=== PATIENT | female | born 1995 | race Caucasian/White ===

== ENCOUNTER 2017-09-18 08:00 | Inpatient (IN) ==
[2017-09-18] MEDS ORDERED: Naloxone 0.4 MG/ML INJ IVP PRN (09:01)
[2017-09-18] MEDS ORDERED: *HR* Nalbuphine 10 MG/ML AMPUL IVP PRN (09:01)
[2017-09-18] MEDS ORDERED: Ondansetron 4 MG/2 ML VIAL IVP PRN (09:01)
[2017-09-18] MEDS ORDERED: Famotidine 20 MG/2 ML VIAL IVP PRN (09:01)
[2017-09-18] MEDS ORDERED: Metoclopramide 10 MG/2 ML VIAL IVP PRN (09:01)
[2017-09-18] MEDS ORDERED: Ringers Solution, Lactated 1,000 ML IVC SCH (09:15)
--- NOTE | 2017-09-18 09:23 | OB/GYN History & Physical ---
Date of Encounter: 09/18/17 Time of Encounter: 09:07 Assessment and Plan (1) Postmaturity , 40-42 weeks gestation Current visit: Yes Status: Acute For induction of labor with Cytotec. History of Present Illness Chief complaint: 40 wk IOL HPI: Ms. Sandoval is a 21 year old female with a history of twins and unknown LMP,? November?, had an ultrasound at 6 weeks 5 days establishing an EDC of 09/17/17. She is currently 40 weeks and 1 day. was complicated by subchorionic hematoma which resolved, and mild anemia. She reports no contractions, no vaginal bleeding or loss of fluid. Fetus has been active. Her previously was a 35 week twin gestation with a vaginal delivery, largest fetus 5 lbs. 14 oz. Her blood type is A+, she is rubella immune, varicella immune and GBS negative. She has had care with Dr. Lara, has gained 41 pounds, and is here for an induction of labor. Past Med Surg Social Fam HX - Past Medical History Source: patient, old records reviewed Medical history: no medical history Psychiatric history: no psych history - Past Surgical History Surgical History: no surgical history - Social History Smoking Status: Never smoker Smokeless Tobacco Status: No Alcohol use: none Drug use: none Current living situation: Home - Independent - Family History Mother Living Status: Still Living Hx Family Cardiac Disorders: (HTN) Obstetrical History - Pregnancies : 2 Term: 0 : 1 Ab's: 0 Livin - History/Complications History/Complications: Twins Medications and Allergies Docusate [Colace] 100 mg PO BID #60 capsule 10/23/15 [Rx] Ferrous Sulfate 325 mg PO DAILY #30 tablet 10/23/15 [Rx] Ibuprofen [Motrin] 600 mg PO TID PRN #60 tablet 10/23/15 [Rx] Vit/FA 1 each PO DAILY tablet 10/23/15 [Rx] 3 Allergy/AdvReac Type Severity Reaction Status Date / Time No Known Allergies Allergy Verified 09/17/15 12:39 Review of System OB All systems PM: reviewed and no additional remarkable complaints except as stated - Constitutional Constitutional ROS IM: fatigue, weight gain - Menstruation Menstruation: as per HPI, amenorrhea Exam - Vital Signs Vital signs: Afebrile, vital signs stable - Constitutional Constitutional: well developed, well nourished, no acute distress, average body habitus - HEENT HEENT: Normocephaly, Mucus Membranes Moist - Neck Neck exam: normal inspection, supple - Lungs Respiratory exam: CTAB - Cardiovascular Cardiovascular exam: RRR - Breasts Breast: bilateral: normal (Gravid) - Abdomen Abdomen: Present: bowel sounds normal, non tender - Extremities Extremities exam: normal inspection, pedal edema, warm Deep Tendon Reflex Grade: 2+ Normal - Vulva Vulva: bilateral: normal - Vagina Vagina: Present: normal moisture - Cervix Dilation: 1 (per Dr Lara, unable to reach) Effacement: 50 (posterior) Station: -1 - Anus/Rectum Anus/Rectum: Present: normal perianal skin Results All other labs normal. - VTE Reasons for not Prescribing Prophylaxis: Treatment not Indicated - Low risk for VTE
[2017-09-18 09:50] LABS: Basophils # 0.1 K/mcL (0.0-0.2); Basophils % 0.4 %; Eosinophils # 0.2 K/mcL (0.0-0.6); Eosinophils % 1.4 %; Hematocrit 34.8 % (35.3-44.9); Hemoglobin 11.1 g/dL (11.5-15.4); Immature Granulocytes % 0.9 % (0-4); Lymphocytes % 15.1 %; Mean Corpuscular HGB Conc 31.9 g/dL (31.6-35.5); Mean Corpuscular Hemoglobin 25.2 pg (28.0-33.3); Mean Corpuscular Volume 79.1 fL (83.0-100.0); Mean Platelet Volume 12.1 fL (9.4-12.4); Monocytes # 1.1 K/mcL (0.0-1.3); Monocytes % 7.9 %; Neutrophils # 9.9 K/mcL (1.6-8.9); Platelet Count 217 K/mcL (140-400); Red Cell Distribution Width 15.7 % (11.5-14.5); Segmented Neutrophils % 74.3 %
[2017-09-18] MEDS: miSOPROStol 25 MCG TABLET PO PRN ×2 (10:34→14:36)
--- NOTE | 2017-09-18 12:24 | OB Labor Progress Note ---
Date of Encounter: 09/18/17 Time of Encounter: 12:22 Labor Progress Note - Subjective Subjective: The patient reports being comfortable, mild cramping - Vital Signs Vital Signs: Afebrile, vital signs stable - Cervix Cervix: 3/70/-1, vertex - Heart Tones Heart Tones: 130s baseline, CAT 1 - [place]: irritability - Interventions Interventions: 40 week IUP for induction of labor - Plan Plan: Oral Cytotec, unable to place Blanca per CNM, cervical change as of last checked 2 hours ago
[2017-09-18 13:13] LABS: Amphetamine Screen,Urine Negative ng/mL (Cutoff=1000); Barbiturate Screen,Urine Negative ng/mL (Cutoff=200); Benzodiazepines Screen,Urine Negative ng/mL (Cutoff=200); Cannabinoid Screen,Urine Positive ng/mL (Cutoff = 50); Cocaine Screen,Urine Negative ng/mL (Cutoff= 300); Opiate Screen,Urine Negative ng/mL (Cutoff=300); Phencyclidine Screen,Urine Negative ng/mL (Cutoff=25)
--- NOTE | 2017-09-18 15:31 | OB Labor Progress Note ---
Date of Encounter: 09/18/17 Time of Encounter: 15:29 Labor Progress Note - Subjective Subjective: The patient reports no significant contractions. She received her second dose of 50 mcg of oral Cytotec 1 hour ago. - Cervix Cervix: 3/70/-1, vertex/posterior - Heart Tones Heart Tones: 120s baseline, CAT 1 - [place]: Irritability - Interventions Interventions: 40 week IUP for induction of labor - Plan Plan: 60 mL Blanca balloon inserted and the cervix per protocol. Continue induction. Anticipate vaginal delivery
--- NOTE | 2017-09-18 17:29 | OB Labor Progress Note ---
Date of Encounter: 09/18/17 Time of Encounter: 17:27 Labor Progress Note - Subjective Subjective: The patient reports feeling intense contractions after Blanca balloon placed in the cervix, for about 20 minutes and then gradually decreased. She is feeling some contractions but not consistent are strong. She has had some bloody show. - Cervix Cervix: I do /-1, posterior with bulgy bag, vertex - Heart Tones Heart Tones: 130s baseline, CAT 1 - [place]: Irregular and hard to monitor on external toco - Interventions Interventions: 40 week intrauterine for induction of labor - Plan Plan: 60 mL Blanca balloon out. Amniotomy with clear fluid seen. IUPC placed. If contraction pattern is not adequate, the patient will be augmented with Pitocin
[2017-09-18] MEDS ORDERED: Oxytocin 20 units/ LR 1000 mL 20 UNIT/1,000 ML BAG IVC ONE (18:07)
[2017-09-18] MEDS ORDERED: Oxytocin 20 units/ LR 1000 mL 20 UNIT/1,000 ML BAG IVC SCH (18:15)
[2017-09-18] MEDS ORDERED: Bupivacaine-MPF 0.25% 10 ML VIAL EP ONE (18:55)
[2017-09-18] MEDS ORDERED: *HR* FentaNYL (PF) 100 MCG/2 ML VIAL EP ONE (18:55)
[2017-09-18] MEDS ORDERED: Epidural Premix (fent/bupiv) 110 ML EP SCH (19:00)
[2017-09-18] MEDS ORDERED: Lidocaine -MPF 1% 5 ML AMPUL ONE (19:05)
--- NOTE | 2017-09-18 19:56 | Anesthesia Evaluation PreOp ---
Date of Encounter: 09/18/17 Time of Encounter: 18:56 - Past History Planned Operation: labor epidural Cardiac History: Denies any Significant Hx Pulmonary History: Denies Any Significant HX FOLLOW UP SPECIALIST History: Denies Any Significant HX Other Medical History: Denies Any Significant HX Anesthesia History: No Prior Anesthetic Complications, Past Anesthesia (wisdom teeth extracted. No FHAP.) : Yes Alcohol Use: none Drug use: none Medications and Allergies No Known Home Drugs 09/18/17 [History] 3 Allergy/AdvReac Type Severity Reaction Status Date / Time No Known Allergies Allergy Verified 09/17/15 12:39 - Meds/Allergy Pre-op Review Medications Reviewed: Yes Allergies Reviewed: Yes Beta Blockers on Current Med List: No Anesthesia Results - Labs 09/18/17 09:09 Anesthesia Exam 121/69, 87, 18, 99%. FHTs 130s Height: 5'3" Weight: 88kg NPO (# of Hours): >8 Pain Scale: 6 Pain Scale Used: Numeric (1 - 10) - HEENT Pupil (Motor): Pupils equal Mallampati: II Teeth: Normal Oral Opening: Greater than 3 - FOLLOW UP SPECIALIST LOC: Oriented FOLLOW UP SPECIALIST Motor: Normal RUE, Normal LUE, Normal RLE, Normal LLE, Normal Face FOLLOW UP SPECIALIST Sensory: Normal: RUE, LUE, RLE, LLE, Face - Cardiac Rhythm: Regular - Pulmonary Breath Sounds: bilateral Clear Respiratory Effort: Symmetrical Anesthesia Assess/Plan ASA Score: 2 Modified Nilesh Scale for Level of Consciousness: Cooperative, oriented, and tranquil Anesthetic Plan: Regional Monitoring Plan: Standard Monitors
--- NOTE | 2017-09-18 19:59 | Anesthesia Procedures ---
Date of Encounter: 09/18/17 Time of Encounter: 19:16 Procedures: Anesthesia - Epidural/Spinal Patient ID/Chart reviewed: Yes Patient examined: Yes OB Eval: Gestational age: 40 OB Eval: : 2 OB Eval: Hx Para: 2 OB Eval: Contractions: Non-stressed pattern Consent Obtained: Yes Supplemental Oxygen: None/Room Air Site Prep: Aseptic Technique, Sterile prep and drape, Povidone-Iodine 1% Patient position: upright Local Anesthetic: Lidocaine 1% Amount of Local Anesthetic used: 5 Touhy Needle Gauge: 18 Touhy Needle Depth (cm): 7 Catheter Depth at Skin (cm): 20 Test Dose (1.5% Lido + Epi): Volume given (mls): 3 Test Dose Result: Negative Loading Dose: 0.25% Marcaine (mls): 8 Loading Dose: Fentanyl (mcg): 100 Loading Dose Administered: Thru Catheter Infusion Med: 0.125% Bupivacaine w/ 2 mcg/ml Fentanyl Infusion Rate (mls/hr): [address]: Tegaderm, Tape Interspace Used: L3-L4 Loss of Resistance (JOSHUA): Yes Blood: No CSF: No Paresthesia: No Vitals + FHT's: 3 Vital Signs Time 1915 1935 1939 1944 1949 BP 140/88 138/64 136/66 135/64 126/63 Pulse 89 87 84 78 81 FHTs 130 130 130 130 130
[2017-09-18] MEDS ORDERED: Bupivacaine-MPF 0.25% 10 ML VIAL ONE (23:14)
[2017-09-18] MEDS ORDERED: *HR* FentaNYL (PF) 100 MCG/2 ML VIAL ONE (23:14)
--- NOTE | 2017-09-19 02:20 | OB/GYN Procedure Note ---
Delivery - Delivery Date: 09/19/17 Provider: Cori Peralta Intrapartum events: none Delivery induction: ocampo, misoprostol Delivery augmentation: rupture of membranes, pitocin Delivery monitor: external FHT, external uterine, internal uterine Anesthesia: epidural Quantitated Blood Loss: 800 - (s) Infant A Infant Delivery Date: 09/19/17 Infant Delivery Time: 01:03 Presentation: vertex Position: SARINA Route of delivery: Gender: Male Viability: Viable Pounds: 7 Ounces: 14 Weight Gram: 3.58 kg at 1 minute: 8 at 5 mins: 10 Shoulder Dystocia: not encountered Specimens collected: endometrial currettings Placenta: uterine exploration, other (Banjo curette), retained, complete extraction Cord: 3 umbilical vessels - Repair Episiotomy: none Laceration Description: Periurethral (Bilateral, repair on the right) - Complications Delivery complications: retained placenta Delivery comments: Patient complete and pushing with epidural anesthesia and with 2 contractions she had a spontaneous vaginal delivery of a vigorous male in the SARINA position, weighing 7 lbs. 14 oz. with Apgars of 8 at 1 minute and 10 at 5 minutes. Patient placed on maternal abdomen, cord was clamped and cut after pulsations ceased. Placenta was observed for 20 minutes and then patient was given 200 mcg of oral Cytotec. This was repeated after 5 minutes. No progress with delivery of the placenta. The patient was then given 250 mcg of Hemabate. There was no aggressive bleeding. After 20 minutes and no further placental delivery a second dose of Hemabate was given. Epidural was working well and the patient was tolerating an intrauterine exam. The placenta was then manually extracted. Banjo curet was performed gently with scant amount of tissue seen. Repeat intrauterine exam revealed no retained products of conception. No aggressive bleeding noted. Estimated blood loss throughout the process was approximately 800 mL's. Patient was recovering in stable condition in the LDR with her in stable condition. - Disposition Mom disposition: stable in LDR disposition: stable in LDR
[2017-09-19] MEDS ORDERED: Oxytocin 20 units/ LR 1000 mL 20 UNIT/1,000 ML BAG IVC SCH (04:35)
[2017-09-19] MEDS ORDERED: Sennosides 8.6 MG TABLET PO PRN (04:35)
[2017-09-19] MEDS ORDERED: Acetaminophen 325 MG TABLET PO PRN (04:35)
[2017-09-19] MEDS: miSOPROStol 100 MCG TABLET PO SCH ×2 (08:14→21:49)
[2017-09-19] MEDS: Prenatal Vit/FA 1 EACH TABLET PO SCH (08:14)
[2017-09-19] MEDS: Ibuprofen 600 MG TABLET PO PRN ×3 (08:14→21:49)
[2017-09-20 07:13] LABS: Basophils # 0.1 K/mcL (0.0-0.2); Basophils % 0.5 %; Eosinophils # 0.3 K/mcL (0.0-0.6); Eosinophils % 2.6 %; Hematocrit 30.7 % (35.3-44.9); Hemoglobin 9.6 g/dL (11.5-15.4); Immature Granulocytes % 0.9 % (0-4); Lymphocytes # 2.3 K/mcL (0.6-4.6); Lymphocytes % 21.2 %; Mean Corpuscular HGB Conc 31.3 g/dL (31.6-35.5); Mean Corpuscular Hemoglobin 24.9 pg (28.0-33.3); Mean Corpuscular Volume 79.5 fL (83.0-100.0); Mean Platelet Volume 11.9 fL (9.4-12.4); Monocytes # 0.9 K/mcL (0.0-1.3); Monocytes % 8.2 %; Neutrophils # 7.3 K/mcL (1.6-8.9); Platelet Count 199 K/mcL (140-400); Red Blood Count 3.86 M/mcL (3.82-4.97); Red Cell Distribution Width 15.9 % (11.5-14.5); Segmented Neutrophils % 66.6 %
[2017-09-20 07:53] VITALS: BP 112/64
[2017-09-20] MEDS: Prenatal Vit/FA 1 EACH TABLET PO SCH (08:02)
[2017-09-20] MEDS: Ibuprofen 600 MG TABLET PO PRN (08:03)
[2017-09-20] MEDS ORDERED: Benzocaine/Menthol 56 GM AEROSOL SPRAY TP PRN (08:45)
--- NOTE | 2017-09-20 08:58 | Discharge Summary ---
Date of Encounter: 09/20/17 Time of Encounter: 08:47 - Discharge Diagnosis (1) Postmaturity , 40-42 weeks gestation Priority: Primary Status: Acute Comments: Status post spontaneous vaginal delivery (2) anemia Priority: Secondary Status: Acute Comments: Patient is being discharged on twice a day iron for 1 month (3) Positive urine drug screen Priority: Secondary Status: Acute Comments: Patient aware that her urine tox screen is positive for marijuana. cord stat pending. She is aware that if it is positive that there will be a child protective services visit/evaluation (4) Retained placenta Priority: Secondary Status: Acute Comments: Complete manual extraction followed by banjo curetting was 800 mL EBL Qualifiers: Retained placenta detail: complete placenta Qualified Code(s): O73.0 - Retained placenta without hemorrhage (5) Vaginal delivery Priority: Secondary Status: Acute - Discharge Medications Prescriptions: Ibuprofen [Motrin] 600 mg PO Q6HR PRN #60 tablet PRN Reason: Cramping Breast Pump [BREAST PUMP] 1 each .ROUTE AD #1 each Ferrous Sulfate 325 mg PO BIDWM #60 tablet Home Medications: Benzocaine/Menthol [place] [Dermoplast [place]] 1 appl TP QID PRN aerosol 09/20/17 [Rx] Breast Pump [BREAST PUMP] 1 each .ROUTE AD #1 each 09/20/17 [Rx] Ferrous Sulfate 325 mg PO BIDWM #60 tablet 09/20/17 [Rx] Ibuprofen [Motrin] 600 mg PO Q6HR PRN #60 tablet 09/20/17 [Rx] Allergies/Adverse Reactions: 3 Allergy/AdvReac Type Severity Reaction Status Date / Time No Known Allergies Allergy Verified 09/17/15 12:39 Data Procedures and tests throughout hospitalization: Laboratory Tests 09/18/17 09/18/17 09/20/17 09:09 09:09 06:44 WBC 13.4 H 10.9 RBC 4.40 3.86 Hgb 11.1 L 9.6 L D Hct 34.8 L 30.7 L MCV 79.1 L 79.5 L MCH 25.2 L 24.9 L MCHC 31.9 31.3 L RDW 15.7 H 15.9 H Plt Count 217 199 MPV 12.1 11.9 Immature Gran % 0.9 0.9 Seg Neutrophils % 74.3 66.6 Lymphocytes % 15.1 21.2 Monocytes % 7.9 8.2 Eosinophils % 1.4 2.6 Basophils % 0.4 0.5 Neutrophils # 9.9 H 7.3 Lymphocytes # 2.0 2.3 Monocytes # 1.1 0.9 Eosinophils # 0.2 0.3 Basophils # 0.1 0.1 Urine Opiates Screen Negative Ur Barbiturates Screen Negative Ur Phencyclidine Scrn Negative Ur Amphetamines Screen Negative U Benzodiazepines Scrn Negative Urine Cocaine Screen Negative U Marijuana (THC) Screen Positive H Labs on day of discharge: Labs from last 24 hours 09/20/17 06:44 WBC 10.9 RBC 3.86 Hgb 9.6 L D Hct 30.7 L MCV 79.5 L MCH 24.9 L MCHC 31.3 L RDW 15.9 H Plt Count 199 MPV 11.9 Immature Gran % 0.9 Seg Neutrophils % 66.6 Lymphocytes % 21.2 Monocytes % 8.2 Eosinophils % 2.6 Basophils % 0.5 Neutrophils # 7.3 Lymphocytes # 2.3 Monocytes # 0.9 Eosinophils # 0.3 Basophils # 0.1 Date of admission: 09/18/17 08:07 Primary care physician: PCP NONE Consults: 09/19/17 04:35 Consult to Heavy Equipment Plumbing Supervisor [CONS] Routine Comment: Vaginal delivery, consult needed Discharging clinician: Cori Peralta Anticipated date of discharge: 09/20/17 - Patient Status Disposition: Home, Self-Care Condition: Good Functional capacity at discharge: independent ambulation Overall status at discharge: patient is progressing back to baseline - Discharge Instructions Follow Up With: NONE,PCP [Primary Care Provider] - Additional Instructions: Pelvic rest, sitz baths, follow-up in 4 weeks. Call for heavy vaginal bleeding - Diet and Activity Activity: increase activity as tolerated, resume usual activities as tolerated Diet: regular diet Hospital Course Procedures: Reason for admission: induction of labor Delivery: Episiotomy: none Laceration: other (Bilateral periurethral laceration with repair on the right) Other procedures: curettage, other (Manual extraction of placenta) complications: retained placenta Discharge diagnosis: IUP at term delivered baby: male Hospital course: Uncomplicated, patient meeting milestones. Patient aware drug screen result Time Attestation: Total time spent providing and/or coordinating discharge services: Time Spent: Less than 30 minutes Exam - Constitutional Vitals: Temp Pulse Resp BP Pulse Ox 98.7 F 76 16 112/64 99 09/20/17 07:53 09/20/17 07:53 09/20/17 08:11 09/20/17 07:53 09/20/17 07:53 General appearance IM: cooperative, pleasant, no acute distress, answers questions appropriately - Respiratory Respiratory exam: Absent: respiratory distress - Cardiovascular Cardiovascular exam IM: Absent: tachycardia - GI/Abdominal GI/Abdominal exam IM: normal bowel sounds, soft, no peritoneal signs - Rectal Rectal exam: deferred - Uterus Position: 2 Fingers Below Umbilicus (NT), Midline - Extremities Exam Extremities exam IM: Present: pedal edema, warm - Neurological Exam Neurological exam: no focal deficits
[2017-09-20] MEDS ORDERED: miSOPROStol 100 MCG TABLET PO ONE (11:29)
== END 2017-09-20 11:30 | disposition home or self-care (01) | DRG 775 ==
LOC: 1NENULAB 08:07 → 1NENUOBS 09-19 06:44
PROVIDERS: ADMIT Obstetrics & Gynecology

== ENCOUNTER 2017-10-02 14:54 | Observation (INO) ==
--- NOTE | 2017-10-02 15:02 | Emergency Department Note ---
Disposition Clinical Impression: hemorrhage of vagina Disposition: Admitted As Inpatient Condition: Fair Time of Disposition: 16:59 General Adult HPI - General Chief complaint: ED Vaginal Bleeding Stated complaint: heavy vaginal bleeding Nursing Notes Reviewed: Yes Vital Signs Reviewed: Yes - History of Present Illness HPI Narrative: 19-year-old female presents emergency department. Patient states she has had a baby 13 days ago. States that she has had uncontrollable vaginal bleeding today and last night. Intermittent bleeding over the last 3-4 days. Patient was seen in the emergency department yesterday where an ultrasound was obtained and patient was given Cytotec and sent home with antibiotics. Patient states that when she got home from the emergency department, the bleeding got worse. States that she is with her multiple pads. Patient is also complaining of abdominal pain she localizes to the suprapubic region. Pain Scale: 10 - Related Data Home Medications Medication Instructions Recorded Confirmed Ibuprofen [Motrin Ib] 400 mg PO Q6H PRN 10/02/17 10/02/17 Allergies Allergy/AdvReac Type Severity Reaction Status Date / Time No Known Allergies Allergy Verified 10/02/17 15:30 All systems ED: reviewed and negative except as stated. Review of Systems: As Per HPI Constitutional: Denies: fever Cardiovascular: Denies: chest pain Respiratory: Denies: dyspnea Gastrointestinal: Reports: abdominal pain. Denies: nausea, vomiting Genitourinary: Reports: other (Vaginal bleeding). Denies: urgency, dysuria, frequency Musculoskeletal: Denies: back pain Neurological: Reports: weakness. Denies: headache, numbness, paresthesias Hematological/Lymphatic: Reports: easy bleeding Past Medical History - Past Medical History Medical history: Reports: no medical history Surgical history: Reports: no surgical history Psychiatric history: Reports: no psych history VETERINARY ANATOMIST history: Reports: no VETERINARY ANATOMIST history - Social History Smoking Status: Unknown if ever smoked Smokeless Tobacco Status: No Alcohol use: Reports: none Drug use: Reports: none Physical Exam - General General appearance: other (Appears uncomfortable.) - Head Head exam: atraumatic, normocephalic - Eye Eye exam: Present: EOMI. Absent: scleral icterus - ENT ENT exam: mucous membranes moist - Neck Neck exam: Present: trachea midline - Chest Chest inspection: Present: symmetric chest wall rise - Respiratory Respiratory exam: Present: normal lung sounds bilaterally. Absent: respiratory distress - Cardiovascular Cardiovascular exam: Present: regular rate, normal rhythm, normal heart sounds - Abdominal Exam Abdominal exam: Present: soft, tenderness (Suprapubic) Abdominal tenderness: Present: moderate - Female Second Miller present during exam: Yes External Exam: Present: normal external exam, bleeding. Absent: swelling, lesions Speculum Exam: Present: vaginal bleeding, other (Patient cannot tolerate exam secondary to discomfort.) Bimanual Exam: Present: other (Patient could not tolerate bimanual exam due to discomfort) - Extremities Exam Extremities exam: Present: full ROM, normal capillary refill - Back Exam Back exam: Present: full ROM - Neurological Exam Neurological exam: Present: alert, oriented X3 - Psychiatric Psychiatric exam: Present: normal affect, normal mood - Skin Skin exam: Present: warm, dry, intact, normal color. Absent: rash Course Vital Signs Pulse Rate 92 10/02/17 14:57 Respiratory Rate 20 10/02/17 14:57 Blood Pressure 128/79 10/02/17 14:57 O2 Sat by Pulse Oximetry 96 10/02/17 14:57 Temperature 98.2 F 10/02/17 15:31 Pulse Rate 104 10/02/17 15:31 Respiratory Rate 20 10/02/17 17:19 Blood Pressure 112/70 10/02/17 17:19 O2 Sat by Pulse Oximetry 97 10/02/17 15:31 Oxygen Delivery Oxygen Delivery Room Air Medical Decision Making - [facility] Narrative Medical decision making narrative: 21-year-old female presents emergency department with concern for vaginal bleeding. Patient appeared to be mildly uncomfortable on physical exam. Pelvic exam that was performed revealed pooling in the vaginal vault with some clots. It was very painful for the patient as we did not complete a bimanual exam. Patient also had moderate suprapubic tenderness to palpation. We obtained hemoglobin. Yesterday's hemoglobin was 11.0. Today's is 9.6. Patient has normal vital signs. We have called VETERINARY ANATOMIST to come see patient at bedside. We have given patient Toradol for pain as well as a liter of fluids. VETERINARY ANATOMIST has come to see patient at bedside. They stated they will accept patient for admission for observation. They asked that we give patient a dose of Cytotec here in the emergency department. They did not want us to provide any antibiotics at this time for possible endometritis. VETERINARY ANATOMIST is also requested us to obtain a pelvic ultrasound. Still awaiting results from urinalysis. I spoke with patient at bedside and she agrees with plan to be admitted. Patient not in any acute distress at time of admission. - Lab Data Result diagrams: 10/02/17 15:30 Lab Results 10/02/17 10/02/17 Range/Units 15:30 15:30 WBC 12.7 H (4.3-11.1) K/mcL RBC 3.84 (3.82-4.97) M/mcL Hgb 9.6 L (11.5-15.4) g/dL Hct 30.2 L (35.3-44.9) % MCV 78.6 L (83.0-100.0) fL MCH 25.0 L (28.0-33.3) pg MCHC 31.8 (31.6-35.5) g/dL RDW 15.2 H (11.5-14.5) % Plt Count 337 (140-400) K/mcL MPV 11.5 (9.4-12.4) fL Immature Gran % 0.3 (0-4) % Seg Neutrophils % 72.1 % Lymphocytes % 20.3 % Monocytes % 5.7 % Eosinophils % 1.3 % Basophils % 0.3 % Neutrophils # 9.2 H (1.6-8.9) K/mcL Lymphocytes # 2.6 (0.6-4.6) K/mcL Monocytes # 0.7 (0.0-1.3) K/mcL Eosinophils # 0.2 (0.0-0.6) K/mcL Basophils # 0.0 (0.0-0.2) K/mcL PT 11.2 (9.4-12.1) Seconds INR 1.0 APTT 27.9 (26.0-36.0) Seconds - EKG Data EKG #1 EKG attestation: Yes I reviewed and interpreted this EKG. EKG results narrative: 15:05 Ventricular rate 90 bpm, NE interval 131 ms, QRS duration 97 ms, QT 358 segs, QTC 405 ms, normal axis. Sinus rhythm with a ventricular rate of [address] changes on this electrocardiogram.
[2017-10-02] MEDS ORDERED: 0.9 % Sodium Chloride 1,000 ML IVC ONE (15:17)
--- NOTE | 2017-10-02 15:35 | Emergency Department Note ---
Disposition Clinical Impression: hemorrhage of vagina Disposition: Admitted As Inpatient Condition: Fair Referrals: NONE,PCP [Primary Care Provider] - Forms: ED Satisfaction Letter General Adult HPI - General Chief complaint: ED Vaginal Bleeding Stated complaint: heavy vaginal bleeding Time Seen by Provider: 10/02/17 15:16 - History of Present Illness Pain Scale: 10 - Related Data Home Medications Medication Instructions Recorded Confirmed Ibuprofen [Motrin Ib] 400 mg PO Q6H PRN 10/02/17 10/02/17 Allergies Allergy/AdvReac Type Severity Reaction Status Date / Time No Known Allergies Allergy Verified 10/02/17 15:30 Constitutional: Denies: fever Cardiovascular: Reports: chest pain Respiratory: Denies: dyspnea Gastrointestinal: Reports: abdominal pain. Denies: nausea, vomiting Genitourinary: Denies: urgency, dysuria, frequency Musculoskeletal: Denies: back pain Integumentary: Denies: rash Neurological: Reports: weakness. Denies: headache, numbness, paresthesias Past Medical History - Past Medical History Medical history: Reports: no medical history Surgical history: Reports: no surgical history Psychiatric history: Reports: no psych history OCCUPATIONAL HEALTH TECHNICIAN history: Reports: no OCCUPATIONAL HEALTH TECHNICIAN history - Social History Smoking Status: Unknown if ever smoked Smokeless Tobacco Status: No Alcohol use: Reports: none Drug use: Reports: none Course Vital Signs Pulse Rate 92 10/02/17 14:57 Respiratory Rate 20 10/02/17 14:57 Blood Pressure 128/79 10/02/17 14:57 O2 Sat by Pulse Oximetry 96 10/02/17 14:57 Temperature 98.2 F 10/02/17 15:31 Pulse Rate 104 10/02/17 15:31 Respiratory Rate 20 10/02/17 15:31 Blood Pressure 124/81 10/02/17 15:31 O2 Sat by Pulse Oximetry 97 10/02/17 15:31 Oxygen Delivery Oxygen Delivery Room Air Medical Decision Making - Lab Data Result diagrams: 10/02/17 15:30 Lab Results 10/02/17 10/02/17 Range/Units 15:30 15:30 WBC 12.7 H (4.3-11.1) K/mcL RBC 3.84 (3.82-4.97) M/mcL Hgb 9.6 L (11.5-15.4) g/dL Hct 30.2 L (35.3-44.9) % MCV 78.6 L (83.0-100.0) fL MCH 25.0 L (28.0-33.3) pg MCHC 31.8 (31.6-35.5) g/dL RDW 15.2 H (11.5-14.5) % Plt Count 337 (140-400) K/mcL MPV 11.5 (9.4-12.4) fL Immature Gran % 0.3 (0-4) % Seg Neutrophils % 72.1 % Lymphocytes % 20.3 % Monocytes % 5.7 % Eosinophils % 1.3 % Basophils % 0.3 % Neutrophils # 9.2 H (1.6-8.9) K/mcL Lymphocytes # 2.6 (0.6-4.6) K/mcL Monocytes # 0.7 (0.0-1.3) K/mcL Eosinophils # 0.2 (0.0-0.6) K/mcL Basophils # 0.0 (0.0-0.2) K/mcL PT 11.2 (9.4-12.1) Seconds INR 1.0 APTT 27.9 (26.0-36.0) Seconds Attestation Statement - Attestation Attestation: I examined this patient and my medical decision-making was reviewed with the Resident Physician. I agree with the documented findings, disposition and treatment plan as described except to the extent set forth below. Patient presents to the ED with a chief complaint of vaginal bleeding. Patient complains of thick heavy clots. Seen yesterday for the same and discharged home after a shot of Cytotec. Patient had a history that required a D&C. On examination she is in no acute distress. A brief pelvic examination was performed that showed heavy vaginal bleeding with clots. Patient did not tolerate the exam secondary to discomfort. Plan. Basic labs and will discuss with OCCUPATIONAL HEALTH TECHNICIAN. Patient's hemolytically stable at this time. He will 9.6. Discussed with OB who will be to the department to evaluate the patient and provide further guidance. Patient admitted to OB.
[2017-10-02 15:47] LABS: Basophils % 0.3 %; Eosinophils # 0.2 K/mcL (0.0-0.6); Eosinophils % 1.3 %; Hematocrit 30.2 % (35.3-44.9); Hemoglobin 9.6 g/dL (11.5-15.4); Immature Granulocytes % 0.3 % (0-4); Lymphocytes # 2.6 K/mcL (0.6-4.6); Lymphocytes % 20.3 %; Mean Corpuscular HGB Conc 31.8 g/dL (31.6-35.5); Mean Corpuscular Volume 78.6 fL (83.0-100.0); Mean Platelet Volume 11.5 fL (9.4-12.4); Monocytes # 0.7 K/mcL (0.0-1.3); Monocytes % 5.7 %; Neutrophils # 9.2 K/mcL (1.6-8.9); Platelet Count 337 K/mcL (140-400); Red Blood Count 3.84 M/mcL (3.82-4.97); Red Cell Distribution Width 15.2 % (11.5-14.5); Segmented Neutrophils % 72.1 %
[2017-10-02 15:54] LABS: Prothrombin Time 11.2 Seconds (9.4-12.1)
[2017-10-02 15:57] LABS: Activated Partial Thrombo Time 27.9 Seconds (26.0-36.0)
[2017-10-02] MEDS ORDERED: Ketorolac 15 MG/ML VIAL IVP ONE (16:07)
--- NOTE | 2017-10-02 16:59 | OB/GYN History & Physical ---
Date of Encounter: 10/02/17 Time of Encounter: 16:54 Assessment and Plan (1) hemorrhage, delayed (> 24 hrs) Current visit: Yes Status: Acute Pt reports heavy bleeding and has had hgb drop from 11 to 9.6 in the last 24 hours. Currently lochia is minimal. Plan to admit for observation. Will repeat US to check for retained POC and keep pt NPO in case the need for D&C arises. POC discussed with Dr. Montilla. (2) Blood loss anemia Current visit: No Status: Acute History of Present Illness Chief complaint: hemorrhage HPI: Ms. Sandoval is a 21 year old female presenting now 13 days from complicated by retained placenta and bedside curettage. She delivered on 09/19/17. She was seen in the ED yesterday for heavy vaginal bleeding which resolved with cytotec and she was discharged home with a prescription for the same. Today she has returned to the ER for another episode of bleeding that she reports was so heavy that she couldn't even get a pad on because it was soaking before she could even get her clothing pulled up. She does admit to slipping down a couple stairs prior to the increased flow today. She also admits that she never had her medications filled after being discharged yesterday. She denies fever or chills, odor, or change in appearance of lochia. No urinary sx. She denies intercourse since delivery. She does report having to care for her 2 year-old twins and the new baby by herself during the day while her s/o is working. Past Med Surg Social Fam HX - Past Medical History Medical history: no medical history Psychiatric history: no psych history - Past Surgical History Surgical History: no surgical history - Social History Smoking Status: Unknown if ever smoked Smokeless Tobacco Status: No Alcohol use: none Drug use: none - Family History Mother Living Status: Still Living Hx Family Cardiac Disorders: (HTN) Hx Family Respiratory Disorders: No Hx Family Cancer: No Hx Family GI Disorders: No Hx Family Endocrine Disorder: No Hx Family Neuromuscular Disorders: No Hx Family Neurologic Disorders: No Hx Family HEENT Disorders: No Hx Family Autoimmune Disorders: No Medications and Allergies Ibuprofen [Motrin Ib] 400 mg PO Q6H PRN 10/02/17 [History] 3 Allergy/AdvReac Type Severity Reaction Status Date / Time No Known Allergies Allergy Verified 10/02/17 15:30 Review of System OB - Constitutional Constitutional ROS IM: fatigue, no headache(s) - Cardiovascular Cardiovascular: lightheadedness (intermittent), no chest pain - Genitourinary Genitourinary: abnormal vaginal bleeding, no urinary frequency, no urinary urgency, no vaginal odor - Neurological Nerological: dizziness (intermittent), numbness (thumb and pointer finger on right hand intermittently), no syncope - Psychiatric Psychiatric: no suicidal ideation Exam - Vital Signs Vital signs: Initial Vital Signs Pulse Resp BP Pulse Ox 92 20 128/79 96 10/02/17 14:57 10/02/17 14:57 10/02/17 14:57 10/02/17 14:57 - Constitutional Constitutional: well developed, well nourished, no acute distress - HEENT HEENT: Pallor, Mucus Membranes Moist - Lungs Respiratory exam: CTAB - Cardiovascular Cardiovascular exam: RRR - Abdomen Abdomen: Present: diffuse tenderness (mildly tender in suprapubic area) - Extremities Extremities exam: normal inspection - Vagina Vagina: Present: discharge (lochia light at this time, fundus just above symphisis pubis) Results Result Diagrams: 10/02/17 15:30 Abnormal lab results WBC 12.7 K/mcL (4.3-11.1) H 10/02/17 15:30 Hgb 9.6 g/dL (11.5-15.4) L 10/02/17 15:30 Hct 30.2 % (35.3-44.9) L 10/02/17 15:30 MCV 78.6 fL (83.0-100.0) L 10/02/17 15:30 MCH 25.0 pg (28.0-33.3) L 10/02/17 15:30 RDW 15.2 % (11.5-14.5) H 10/02/17 15:30 Neutrophils # 9.2 K/mcL (1.6-8.9) H 10/02/17 15:30 All other labs normal.
[2017-10-02] MEDS ORDERED: miSOPROStol 100 MCG TABLET PO ONE (17:00)
[2017-10-02 17:32] LABS: Bilirubin,Urine Small (Negative); Blood,Urine Large (Negative); Clarity,Urine Cloudy (Clear); Color,Urine Dark Yellow (Yellow); Glucose,Urine (UA) Normal (Normal); Ketones,Urine Negative (Negative); Leukocyte Esterase,Urine Negative (Negative); Nitrite,Urine Negative (Negative); PH,Urine 5.5 pH Units (5.0-8.0); Protein,Urine Trace mg/dL (Neg-Trace); Specific Gravity,Urine 1.027 (1.010-1.025); Urobilinogen,Urine Normal (Normal)
[2017-10-02 17:35] LABS: Bacteria,Urine None Seen per hpf (None-Few); Hyaline Casts,Urine Few per lpf (None-Few); Squamous Epithelial Cell,Urine Many per lpf (None-Few)
[2017-10-02] MEDS ORDERED: cefTRIAXone 500 MG VIAL IM ONE (19:25)
[2017-10-02] MEDS ORDERED: Ringers Solution, Lactated 1,000 ML IVC SCH ×3 (19:30→22:49)
[2017-10-02] MEDS ORDERED: *HR* Midazolam HCl 2 MG/2 ML VIAL ONE (20:38)
[2017-10-02] MEDS ORDERED: *HR* Propofol 200 MG/20 ML VIAL IVP ONE (20:38)
[2017-10-02] MEDS ORDERED: *HR* Succinylcholine 200 MG/10 ML VIAL IVP ONE (20:38)
[2017-10-02] MEDS ORDERED: *HR* FentaNYL (PF) 100 MCG/2 ML VIAL ONE (20:38)
[2017-10-02] MEDS ORDERED: Ondansetron 4 MG/2 ML VIAL ONE (20:38)
[2017-10-02] MEDS ORDERED: Dexamethasone 4 MG/ML VIAL ONE (20:38)
[2017-10-02] MEDS ORDERED: Lidocaine -MPF 4% 5 ML AMPUL ONE (20:42)
[2017-10-02] MEDS ORDERED: *HR* OxyCODONE Immed Rel 5 MG TABLET PO PRN (21:00)
[2017-10-02] MEDS ORDERED: *HR* Meperidine 50 MG/ML SYRINGE IVP PRN (21:00)
[2017-10-02] MEDS ORDERED: Ondansetron 4 MG/2 ML VIAL IVP ONE (21:00)
[2017-10-02] MEDS ORDERED: *HR* Promethazine 25 MG/ML VIAL IVP PRN (21:00)
[2017-10-02] MEDS ORDERED: *HR* FentaNYL (PF) 100 MCG/2 ML VIAL IVP PRN (21:00)
--- NOTE | 2017-10-02 21:00 | Anesthesia Evaluation PreOp ---
Date of Encounter: 10/02/17 Time of Encounter: 20:58 - Past History Planned Operation: D and C Cardiac History: Denies any Significant Hx Pulmonary History: Denies Any Significant HX CRYSTAL LAPPER History: Denies Any Significant HX Other Medical History: Other (acute blood loss anemia) Anesthesia History: Past Anesthesia (none, no known family hx of anesthetic complications) Alcohol Use: none Drug use: none Medications and Allergies Ibuprofen [Motrin Ib] 400 mg PO Q6H PRN 10/02/17 [History] 3 Allergy/AdvReac Type Severity Reaction Status Date / Time No Known Allergies Allergy Verified 10/02/17 15:30 - Meds/Allergy Pre-op Review Medications Reviewed: Yes Allergies Reviewed: Yes Beta Blockers on Current Med List: No Anesthesia Results - Labs 10/02/17 15:30 Anesthesia Exam Vital Signs/O2 Sat, Most Current Temp Pulse Resp BP Pulse Ox 98.7 F 75 16 113/57 99 10/02/17 19:45 10/02/17 19:45 10/02/17 19:45 10/02/17 19:45 10/02/17 19:45 Weight: 78kg NPO (# of Hours): >8 - HEENT Pupil (Motor): Pupils equal, EOMI Mallampati: II Teeth: Missing (lower molard) Oral Opening: Greater than 3 - CRYSTAL LAPPER LOC: Oriented CRYSTAL LAPPER Motor: Normal RUE, Normal LUE, Normal RLE, Normal LLE, Normal Face CRYSTAL LAPPER Sensory: Normal: RUE, LUE, RLE, LLE, Face - Cardiac Rhythm: Regular - Pulmonary Breath Sounds: bilateral Clear Respiratory Effort: Symmetrical Anesthesia Assess/Plan ASA Score: 2 Modified [place] Scale for Level of Consciousness: Cooperative, oriented, and tranquil Anesthetic Plan: General Monitoring Plan: Standard Monitors Recovery Plan: PACU
[2017-10-02] MEDS ORDERED: Acetaminophen IV 1,000 MG/100 ML INFUS..BTL ONE (21:05)
--- NOTE | 2017-10-02 22:31 | OB/GYN Procedure Note ---
Suction D&C - Diagnosis Date of procedure: 10/02/17 Pre-op diagnosis: other (retained placenta) Post-op diagnosis: same - Procedure Procedure: suction D&C Surgeon: Masha Montilla Was there an minister assistant present: No Anesthesia provider: Shilpa Pulliam Anesthesia Type: General Estimated blood loss (cc): 100 Complications: none Fluids: crystalloid Specimen: uterine contents Disposition: PACU Narrative: Patient was taken operative suite and placed under general anesthesia without difficulty. She was prepped and draped in the normal sterile fashion in the dorsal lithotomy position. Timeout was then performed. A speculum was in place and the patient's vagina and the anterior lip of the cervix is grasped with a single-tooth tenaculum. The cervix is gently dilated to allow passage of a sharp curette. A 9 mm suction curette was then passed and a suction curettage was performed. A sharp curettage is then performed of the endometrial cavity until a gritty texture is noted throughout. Dark black tissue was obtained and sent to pathology for review, suspicious for All instruments removed from her vagina. Anterior lip of the cervix is hemostatic without repair. Patient is awaken and taken to recovery in stable condition.
[2017-10-02] MEDS ORDERED: Ondansetron 4 MG/2 ML VIAL IVP PRN (22:49)
[2017-10-02] MEDS ORDERED: Ibuprofen 600 MG TABLET PO PRN (22:49)
--- NOTE | 2017-10-02 22:59 | Anesthesia Evaluation Post Op ---
Date of Encounter: 10/02/17 Time of Encounter: 22:45 - Vital Signs Vital Signs: Vital Signs/O2 Sat, Most Current Temp Pulse Resp BP Pulse Ox 97.9 F 63 16 106/57 98 10/02/17 22:45 10/02/17 22:45 10/02/17 22:45 10/02/17 22:45 10/02/17 22:45 - Lungs Lungs: Clear Ascult./Percussion - Airway Airway: Non-obstructed - Cardiovascular Regular Rate - Mental Status Mental Status: Alert & Oriented, Answers Appropriately - Pain Pain Scale: 0 Pain Scale used: Numeric (1 - 10) - Nausea Vomiting Nausea Vomiting: Not Present - Hydration Hydration: Tolerates oral liquids - Discharge PostOp Status: Transfer Patient to floor
[2017-10-03] MEDS ORDERED: miSOPROStol 100 MCG TABLET PO SCH
--- NOTE | 2017-10-03 06:48 | Discharge Summary ---
Date of Encounter: 10/03/17 Time of Encounter: 06:47 - Discharge Diagnosis (1) Retained placenta or membranes Priority: Primary Status: Acute Comments: s/p dilation and curettage (2) S/P dilation and curettage Priority: Primary Status: Acute (3) hemorrhage, delayed (> 24 hrs) Priority: Primary Status: Acute Comments: CBC still pending this morning. (4) Blood loss anemia Priority: Secondary Status: Acute Comments: Awaiting CBC this AM. She denies feeling dizzy or lightheaded and is ambulating without difficulty. - Discharge Medications Home Medications: Ibuprofen [Motrin Ib] 400 mg PO Q6H PRN 10/02/17 [History] Allergies/Adverse Reactions: 3 Allergy/AdvReac Type Severity Reaction Status Date / Time No Known Allergies Allergy Verified 10/02/17 15:30 Data Procedures and tests throughout hospitalization: Laboratory Tests 10/02/17 17:10 Urine Color Dark Yellow Urine Clarity Cloudy A Urine pH 5.5 Ur Specific [place] 1.027 H Urine Protein Trace Urine Glucose (UA) Normal Urine Ketones Negative Urine Blood Large H Urine Nitrite Negative Urine Bilirubin Small H Urine Urobilinogen Normal Ur Leukocyte Esterase Negative Urine Microscopic RBC 5-15 H Urine Microscopic WBC 5-15 H Ur Squamous Epith Cells Many H Urine Bacteria None Seen Hyaline Casts Few Ur Culture Indicated? NO Labs on day of discharge: Labs from last 24 hours 10/02/17 17:10 Urine Color Dark Yellow Urine Clarity Cloudy A Urine pH 5.5 Ur Specific [place] 1.027 H Urine Protein Trace Urine Glucose (UA) Normal Urine Ketones Negative Urine Blood Large H Urine Nitrite Negative Urine Bilirubin Small H Urine Urobilinogen Normal Ur Leukocyte Esterase Negative Urine Microscopic RBC 5-15 H Urine Microscopic WBC 5-15 H Ur Squamous Epith Cells Many H Urine Bacteria None Seen Hyaline Casts Few Ur Culture Indicated? NO Date of admission: 10/02/17 16:57 Primary care physician: PCP NONE Discharging clinician: Masha Montilla Anticipated date of discharge: 10/03/17 - Patient Status Disposition: Home, Self-Care Condition: Good Functional capacity at discharge: independent ambulation Overall status at discharge: patient is progressing back to baseline - Discharge Instructions - Diet and Activity Activity: increase activity as tolerated Diet: advance to your usual diet Hospital Course [employer] Reason for admission: other ( hemorrhage) Post op complications: none Discharge diagnosis: other ( hemorrhage delayed) Procedures: D and C Hospital course: Patient admitted for delayed hemorrhage with second day of heavy bleeding requiring a trip to the ER. She underwent a D and C without complication and bleeding improved. POD 1 she is without complaint. Exam is normal and bleeding is minimal. CBC has yet to be drawn, but patient would like to go home to her children. Time Attestation: Total time spent providing and/or coordinating discharge services: Time Spent: Less than 30 minutes Exam - Constitutional Vitals: Temp Pulse Resp BP Pulse Ox 98.7 F 80 16 104/49 96 10/03/17 05:25 10/03/17 05:25 10/03/17 05:25 10/03/17 05:25 10/03/17 05:25 General appearance IM: A&O X 3 - Respiratory Respiratory exam: Present: CTAB - Cardiovascular Cardiovascular exam IM: Present: RRR - GI/Abdominal GI/Abdominal exam IM: normal bowel sounds, soft - Extremities Exam Extremities exam IM: Absent: calf tenderness
[2017-10-03 07:20] LABS: Basophils % 0.1 %; Hematocrit 25.7 % (35.3-44.9); Immature Granulocytes % 0.3 % (0-4); Lymphocytes # 1.3 K/mcL (0.6-4.6); Lymphocytes % 12.2 %; Mean Corpuscular HGB Conc 30.7 g/dL (31.6-35.5); Mean Corpuscular Hemoglobin 24.5 pg (28.0-33.3); Mean Corpuscular Volume 79.8 fL (83.0-100.0); Mean Platelet Volume 11.9 fL (9.4-12.4); Monocytes # 0.3 K/mcL (0.0-1.3); Monocytes % 2.6 %; Neutrophils # 9.1 K/mcL (1.6-8.9); Platelet Count 253 K/mcL (140-400); Red Blood Count 3.22 M/mcL (3.82-4.97); Red Cell Distribution Width 15.5 % (11.5-14.5); Segmented Neutrophils % 84.8 %
[2017-10-03 07:39] LABS: Hemoglobin 7.9 g/dL (11.5-15.4)
[2017-10-03 08:08] VITALS: BP 106/64
[2017-10-03] MEDS ORDERED: Prenatal Vit/FA 1 EACH TABLET PO SCH (09:00)
--- NOTE | 2017-10-05 09:12 | Electrocardiograph Report ---
[address] [place], [place] [address] Test Date: 2017-10-02 Pat Name: Britni Sandoval Department: 103 Room: [facility] Gender: F Chairman President And Chief Executive Officer: ALFREDO : 1995 Requested By: Adwoa See Order Number: [id number] Reading MD: Aries Lara Measurements Intervals [place] Rate: 90 P: 58 WY: 131 QRS: 51 QRSD: 97 T: 40 QT: 358 QTc: 405 Interpretive Statements SINUS RHYTHM Electronically Signed On 10-05-2017 9:11:12 EDT by Aries Lara
== END 2017-10-03 10:05 | disposition home or self-care (01) ==
LOC: 1NENUOBS 14:54 → EMEROO 14:54 → 1NENUOBS 17:44
PROVIDERS: ADMIT Obstetrics & Gynecology; ATTEND Obstetrics & Gynecology